=== PATIENT | male | born 1940 | race Caucasian/White ===

== ENCOUNTER → 2018-01-30 | Outpatient (CLI) | payer MEDICARE ==
[~2018-01-30] MED LIST: ATOR20 PO; CEPH500 PO; CLON.3TP TP; CLOP75 PO; FELO5CR PO; Flomax0.4 MG PO; HYDACE5 PO; LEVSOD25 PO; LEVSOD50 PO; LIRA0.6P; LOSA50 PO; LOVA20 PO; META800 PO; METF500 PO; NAPR500 PO; Norvasc10 MG PO; SPIR25 PO; TEMA30 PO; VERA240ER PO; VICTOZA
== END ==
LOC: LAB SHORT 16:17 → LAB 16:17
DX: R11.10 Vomiting, unspecified (principal); R10.9 Unspecified abdominal pain
CPT/HCPCS: 87086

== ENCOUNTER 2018-01-31 19:02 | Emergency (ER) | payer MEDICARE | END 2018-01-31 19:45 | disposition left against medical advice (07) | LOC: ER 19:02 | DX: Z53.21 Procedure and treatment not carried out due to patient leaving prior to being seen by health care provider (principal) ==

== ENCOUNTER 2019-04-14 06:44 | Day surgery (SDC) | payer MEDICARE ==
[~2019-04-14] VITALS: Ht 162.6 cm; Wt 100.6 kg
[~2019-04-14 06:44] MED LIST changes: +Aspirin EC81 MG PO; +COENZYME Q10100 MG PO; +GLIM4 PO; -LIRA0.6P; +LIRA0.6P SC; +MICROZIDE12.5 M2 PO; +Synthroid25 MCG PO; +VITAMIN B122500 MCG PO
== END 2019-04-14 08:53 | disposition home or self-care (01) ==
LOC: ORSCSDS 06:44
PROVIDERS: Surgery
PROC: 0DBN8ZX Excision of Sigmoid Colon, Via Natural or Artificial Opening Endoscopic, Diagnostic (ICD-10-PCS; principal; 2019-04-14 08:00)
PROC: 0DBM8ZX Excision of Descending Colon, Via Natural or Artificial Opening Endoscopic, Diagnostic (ICD-10-PCS; principal; 2019-04-14 08:00)
PROC: 0DBP8ZX Excision of Rectum, Via Natural or Artificial Opening Endoscopic, Diagnostic (ICD-10-PCS; principal; 2019-04-14 08:00)
PROC: 0DBH8ZX Excision of Cecum, Via Natural or Artificial Opening Endoscopic, Diagnostic (ICD-10-PCS; principal; 2019-04-14 08:00)
DX: Z12.11 Encounter for screening for malignant neoplasm of colon (principal); Z86.010 Personal history of colon polyps; Z80.0 Family history of malignant neoplasm of digestive organs; D12.0 Benign neoplasm of cecum; D12.4 Benign neoplasm of descending colon; K63.5 Polyp of colon; K62.1 Rectal polyp; G47.33 Obstructive sleep apnea (adult) (pediatric); E11.22 Type 2 diabetes mellitus with diabetic chronic kidney disease; I12.9 Hypertensive chronic kidney disease with stage 1 through stage 4 chronic kidney disease, or unspecified chronic kidney disease; N18.9 Chronic kidney disease, unspecified; E03.9 Hypothyroidism, unspecified; E66.01 Morbid (severe) obesity due to excess calories; Z68.38 Body mass index [BMI] 38.0-38.9, adult; Z79.01 Long term (current) use of anticoagulants; Z79.899 Other long term (current) drug therapy
CPT/HCPCS: 82947; 88305; J0330; J0461; J2405; J2704; J7120

== ENCOUNTER 2019-06-28 06:21 | Day surgery (SDC) | payer MEDICARE ==
[~2019-06-28] VITALS: Ht 162.6 cm; Wt 103.9 kg
[~2019-06-28 06:21] MED LIST changes: +Restoril15 MG PO
== END 2019-06-28 08:09 | disposition home or self-care (01) ==
LOC: ORSCSDS 06:21
PROVIDERS: Ophthalmology
PROC: 08RK3JZ Replacement of Left Lens with Synthetic Substitute, Percutaneous Approach (ICD-10-PCS; principal; 2019-06-28 07:30)
DX: H25.12 Age-related nuclear cataract, left eye (principal); E11.9 Type 2 diabetes mellitus without complications; I10 Essential (primary) hypertension; N18.9 Chronic kidney disease, unspecified; E03.9 Hypothyroidism, unspecified; E66.01 Morbid (severe) obesity due to excess calories; Z68.39 Body mass index [BMI] 39.0-39.9, adult; Z79.82 Long term (current) use of aspirin; Z79.899 Other long term (current) drug therapy
CPT/HCPCS: 82947; J2250; J3010; V2632

== ENCOUNTER 2021-12-09 00:46 | Inpatient (IN) | payer OTHER, MEDICARE ==
[~2021-12-09] VITALS: Ht 162.6 cm; Wt 106.6 kg
[2021-12-09 02:17] LABS: BASOPHILS ABSOLUTE AUTO 0.02 K/mm3 (0.00-0.23); BASOPHILS PERCENT AUTO 0 % (0-2); EOSINOPHILS ABSOLUTE AUTO 0.49 K/mm3 (0.00-0.68); EOSINOPHILS PERCENT AUTO 7 % (0-6); Hematocrit 36.8 % (37.0-53.0); Hemoglobin 12.5 g/dL (13.5-17.5); IMMATURE GRAN ABSOLUTE AUTO 0.02 K/mm3 (0.00-0.10); IMMATURE GRAN PERCENT AUTO 0 % (0-1); LYMPHOCYTES ABSOLUTE AUTO 1.12 K/mm3 (0.84-5.20); LYMPHOCYTES PERCENT AUTO 16 % (21-46); MONOCYTES ABSOLUTE AUTO 0.61 K/mm3 (0.16-1.47); MONOCYTES PERCENT AUTO 9 % (4-13); Mean Corpuscular HGB 30.2 pg (26.0-34.0); Mean Corpuscular Volume 89 fL (80-100); Mean Platelet Volume 9.3 fL (9.1-12.4); NEUTROPHILS ABSOLUTE AUTO 4.87 K/mm3 (1.96-9.15); NEUTROPHILS PERCENT AUTO 68 % (41-73); Platelet Count 148 K/mm3 (150-400); RDW Coefficient Variation 12.6 % (11.7-14.2); RDW Standard Deviation 40.9 fL (35.1-46.3); Red Blood Cell Count 4.14 M/mm3 (4.30-5.90); White Blood Cell Count 7.13 K/mm3 (4.00-11.30)
[2021-12-09 02:31] LABS: Albumin, Blood 3.1 g/dL (3.4-5.0); Albumin/Globulin Ratio 0.9 (0.8-1.8); Bilirubin, Total 0.3 mg/dL (0.1-1.0); Bun/Creatinine Ratio 13.2 (12.0-20.0); Calcium, Blood 8.2 mg/dL (8.5-10.1); Creatinine, Blood 3.41 mg/dL (0.60-1.20); Globulin, Blood 3.5 g/dL (2.2-4.0); Potassium, Blood 4.5 mmol/L (3.5-5.5); Total Protein, Blood 6.6 g/dL (6.4-8.2)
[2021-12-09] MEDS ORDERED: FELODIPINE ER5 M2 PO (03:39)
[2021-12-09] MEDS ORDERED: SPIRONOLACTONE25 MG PO (03:39)
[2021-12-09] MEDS ORDERED: CLONIDINE1 EA17 TD (03:39)
[2021-12-09] MEDS ORDERED: ROSU10TA PO (03:39)
[2021-12-09] MEDS ORDERED: LOSARTAN (03:40)
[2021-12-09] MEDS ORDERED: OMEGA-3 + VITA200 ML PO (03:41)
[2021-12-09] MEDS ORDERED: VERAPAMIL SR240 M1 PO (03:42)
[2021-12-09] MEDS ORDERED: metoprolol succinate (03:42)
[2021-12-09] MEDS ORDERED: HYDCHL25 PO (03:42)
[2021-12-09] MEDS ORDERED: SULFAMETHOXAZO1 EAC1 PO (03:43)
[2021-12-09] MEDS ORDERED: AMLODIPINE BESY10 MG PO (03:43)
[2021-12-09] MEDS ORDERED: ATOR40TA PO (03:44)
[2021-12-09] MEDS ORDERED: PLAVIX75 MG PO (03:44)
[2021-12-09] MEDS ORDERED: VENLAFAXINE HC225 MG PO (03:45)
[2021-12-09] MEDS ORDERED: RESTORIL15 M1 PO (03:46)
[2021-12-09] MEDS ORDERED: GLIM4 PO (03:47)
[2021-12-09 04:22] LABS: Source, Urine Clean Catch
[2021-12-09 04:28] LABS: Bilirubin, Urine Neg (Neg); Blood, Urine 1+ (Neg); Glucose Qualitative, Urine 2+ (Neg); Ketones, Urine Neg (Neg); Leukocyte Esterase, Urine 1+ (Neg); Nitrite, Urine Neg (Neg); Protein, Urine 3+ (Neg); Urobilinogen, Urine NORM (Normal)
[2021-12-09 05:00] LABS: Appearance, Urine Clear (Clear); Color, Urine Yellow (P-Yellow)
[2021-12-09 05:05] LABS: Amorphous Light (0-Heavy); Bacteria Few /hpf; Calcium Oxalate Crystals Few /hpf; Red Blood Cells, Urine 0-2 /hpf (0-2); Squamous Epithelial Cells Few /hpf (Few); White Blood Cells, Urine 0-2 /hpf (0-5)
--- NOTE | 2021-12-09 16:24 | NUR ---
Patient admitted for hypoglycemia, will observe during the night. Orders to check blood sugar Q4H. Patient Alert & oriented, weak needs assistance for transfers. Uses BSC, incontinent at times. Patient is impulsive, unaware of surroundings. Provided education on safety, patient demonstrated how to use call-light. Bed alarm activated and audible. Vitals stable, CBGs WNL.
[2021-12-09] MEDS ORDERED: LOSA50 PO (16:40)
[2021-12-09] MEDS ORDERED: TOPROL XL50 MG PO (16:41)
[2021-12-09] MEDS ORDERED: LEVSOD25 PO (16:44)
[2021-12-09] MEDS ORDERED: TAMS.4ER PO (16:45)
[2021-12-09] MEDS ORDERED: TEMA15 PO (16:48)
[2021-12-10 05:30] LABS: BASOPHILS ABSOLUTE AUTO 0.01 K/mm3 (0.00-0.23); BASOPHILS PERCENT AUTO 0 % (0-2); EOSINOPHILS ABSOLUTE AUTO 0.63 K/mm3 (0.00-0.68); EOSINOPHILS PERCENT AUTO 11 % (0-6); Hematocrit 41.6 % (37.0-53.0); Hemoglobin 13.9 g/dL (13.5-17.5); IMMATURE GRAN ABSOLUTE AUTO 0.02 K/mm3 (0.00-0.10); IMMATURE GRAN PERCENT AUTO 0 % (0-1); LYMPHOCYTES ABSOLUTE AUTO 1.27 K/mm3 (0.84-5.20); LYMPHOCYTES PERCENT AUTO 22 % (21-46); MONOCYTES ABSOLUTE AUTO 0.68 K/mm3 (0.16-1.47); MONOCYTES PERCENT AUTO 12 % (4-13); Mean Corpuscular HGB 30.3 pg (26.0-34.0); Mean Corpuscular HGB Conc 33.4 g/dL (31.5-36.5); Mean Corpuscular Volume 91 fL (80-100); Mean Platelet Volume 9.8 fL (9.1-12.4); NEUTROPHILS ABSOLUTE AUTO 3.21 K/mm3 (1.96-9.15); NEUTROPHILS PERCENT AUTO 55 % (41-73); Platelet Count 133 K/mm3 (150-400); RDW Coefficient Variation 12.8 % (11.7-14.2); RDW Standard Deviation 42.6 fL (35.1-46.3); Red Blood Cell Count 4.59 M/mm3 (4.30-5.90); White Blood Cell Count 5.82 K/mm3 (4.00-11.30)
[2021-12-10 05:56] LABS: Albumin, Blood 2.9 g/dL (3.4-5.0); Albumin/Globulin Ratio 0.9 (0.8-1.8); Bilirubin, Total 0.3 mg/dL (0.1-1.0); Bun/Creatinine Ratio 12.8 (12.0-20.0); Creatinine, Blood 3.13 mg/dL (0.60-1.20); Globulin, Blood 3.3 g/dL (2.2-4.0); Total Protein, Blood 6.2 g/dL (6.4-8.2)
--- NOTE | 2021-12-10 18:02 | NUR ---
DAYSHIFT SUMMARY Patient febrile during the night, tylenol given at 0700, fever broke at 1000. Patients sister at [facility], reported concerns that patient had a stroke, stated he has a hx of TIAs. Neuro assessment completed, WNL. Patient alert, unable to explain situation/time. Blood cultures ordered, results pending. Blood sugar WNL, DC'd IV D5W & oral hypoglycemic med. PVR ordered, no urinary retention noted. Vitals stable, waiting for BC results.
[2021-12-10 19:48] LABS: SARS-Cov-2 (COVID-19) PCR, MMC NEGATIVE (NEGATIVE)
--- NOTE | 2021-12-11 04:57 | NUR ---
SHIFT SUMMARY NO ACUTE CHANGES THIS SHIFT. AOX3, FORGETFUL @TIMES. DENIES PAIN, N/V OR DYSPNEA. HS CBG @147. VSS. AFEBRILE. PT SLEPT WELL T/O NIGHT. CALL LIGHT & BED ALARM IN PLACE, WILL MONITOR.
[2021-12-11 06:51] LABS: Albumin, Blood 2.6 g/dL (3.4-5.0); Albumin/Globulin Ratio 0.8 (0.8-1.8); Bilirubin, Total 0.4 mg/dL (0.1-1.0); Bun/Creatinine Ratio 17.3 (12.0-20.0); Creatinine, Blood 3.06 mg/dL (0.60-1.20); Globulin, Blood 3.2 g/dL (2.2-4.0); Potassium, Blood 4.2 mmol/L (3.5-5.5); Total Protein, Blood 5.8 g/dL (6.4-8.2)
--- NOTE | 2021-12-11 16:50 | NUR ---
PT SENT HOME WITH DC INSTRUCTIONS GIVEN TO AND PT. WHEELCHAIR ESCORT OUT TO PRIVATE CAR, TO DRIVE PT HOME.
== END 2021-12-11 16:14 | disposition home or self-care (01) | DRG 637 ==
LOC: ER 00:46 → ERHOLD 00:47 → MEDS 13:49
PROVIDERS: Family Medicine; Internal Medicine; Student in an Organized Health Care Education/Training Program; ADMIT Internal Medicine
DX: E11.649 Type 2 diabetes mellitus with hypoglycemia without coma (principal); G92.8 Other toxic encephalopathy; N39.0 Urinary tract infection, site not specified; N18.4 Chronic kidney disease, stage 4 (severe); Z86.73 Personal history of transient ischemic attack (TIA), and cerebral infarction without residual deficits; I12.9 Hypertensive chronic kidney disease with stage 1 through stage 4 chronic kidney disease, or unspecified chronic kidney disease; G47.33 Obstructive sleep apnea (adult) (pediatric); R63.4 Abnormal weight loss; T38.3X5A Adverse effect of insulin and oral hypoglycemic [antidiabetic] drugs, initial encounter; E03.9 Hypothyroidism, unspecified; Z20.822 Contact with and (suspected) exposure to COVID-19; E78.5 Hyperlipidemia, unspecified; Z98.890 Other specified postprocedural states; Z98.49 Cataract extraction status, unspecified eye; Z96.1 Presence of intraocular lens; Z79.899 Other long term (current) drug therapy; Z79.84 Long term (current) use of oral hypoglycemic drugs; R33.9 Retention of urine, unspecified
CPT/HCPCS: 36415; 51798; 71045; 80053; 81001; 82947; 83036; 84145; 84443; 85025; 87040; 87086; 93005; 93010; 96372; 96374; 99285-25; A9270; G0378; J1644; J7042; U0004

== ENCOUNTER 2022-10-30 09:51 | Day surgery (SDC) | payer MEDICARE ==
[~2022-10-30] VITALS: Ht 162.6 cm; Wt 87.0 kg
[~2022-10-30 09:51] MED LIST changes: +AMLODIPINE BESY10 MG PO; +ATOR40TA PO; +CLONIDINE1 EA17 TD; +FELODIPINE ER5 M2 PO; +HYDCHL25 PO; +LOSARTAN; +OMEGA-3 + VITA200 ML PO; +PLAVIX75 MG PO; +RESTORIL15 M1 PO; +ROSU10TA PO; +SPIRONOLACTONE25 MG PO; +SULFAMETHOXAZO1 EAC1 PO; +TAMS.4ER PO; +TEMA15 PO; +TOPROL XL50 MG PO; +VENLAFAXINE HC225 MG PO; +VERAPAMIL SR240 M1 PO; +metoprolol succinate
--- NOTE | 2022-10-30 11:32 | NUR ---
10/30/22 113[address] Beata Cosme [address]PO[address] WITH DR[address] FREIRE. DR. FREIRE FEELS PATIENT IS APPROPRIATE FOR NURSE SEDATION.
[2022-10-30 12:24] VITALS: BP 128/70
== END 2022-10-30 12:27 | disposition home or self-care (01) ==
LOC: ORSCSDS 09:51
PROVIDERS: Surgery
PROC: 0DBH8ZX Excision of Cecum, Via Natural or Artificial Opening Endoscopic, Diagnostic (ICD-10-PCS; principal; 2022-10-30 11:00)
PROC: 0DBL8ZX Excision of Transverse Colon, Via Natural or Artificial Opening Endoscopic, Diagnostic (ICD-10-PCS; principal; 2022-10-30 11:00)
DX: Z12.11 Encounter for screening for malignant neoplasm of colon (principal); Z86.010 Personal history of colon polyps; Z80.0 Family history of malignant neoplasm of digestive organs; D12.3 Benign neoplasm of transverse colon; D12.0 Benign neoplasm of cecum; K57.30 Diverticulosis of large intestine without perforation or abscess without bleeding; I12.9 Hypertensive chronic kidney disease with stage 1 through stage 4 chronic kidney disease, or unspecified chronic kidney disease; E11.22 Type 2 diabetes mellitus with diabetic chronic kidney disease; N18.9 Chronic kidney disease, unspecified; I25.10 Atherosclerotic heart disease of native coronary artery without angina pectoris; G47.33 Obstructive sleep apnea (adult) (pediatric); I25.2 Old myocardial infarction; Z79.02 Long term (current) use of antithrombotics/antiplatelets; Z79.01 Long term (current) use of anticoagulants; Z79.899 Other long term (current) drug therapy
CPT/HCPCS: 82947; 88305; J2704; J7120

== ENCOUNTER 2023-04-29 23:54 | Emergency (ER) | payer MEDICARE ==
[~2023-04-29] VITALS: Ht 162.6 cm; Wt 86.2 kg
[2023-04-29 23:55] VITALS: BP 146/83
[2023-04-30 00:52] LABS: BASOPHILS ABSOLUTE AUTO 0.02 K/mm3 (0.00-0.23); BASOPHILS PERCENT AUTO 0 % (0-2); EOSINOPHILS PERCENT AUTO 0 % (0-6); Hematocrit 36.5 % (37.0-53.0); Hemoglobin 12.1 g/dL (13.5-17.5); IMMATURE GRAN ABSOLUTE AUTO 0.04 K/mm3 (0.00-0.10); IMMATURE GRAN PERCENT AUTO 1 % (0-1); LYMPHOCYTES ABSOLUTE AUTO 0.72 K/mm3 (0.84-5.20); LYMPHOCYTES PERCENT AUTO 9 % (21-46); MONOCYTES ABSOLUTE AUTO 0.13 K/mm3 (0.16-1.47); MONOCYTES PERCENT AUTO 2 % (4-13); Mean Corpuscular HGB 30.4 pg (26.0-34.0); Mean Corpuscular HGB Conc 33.2 g/dL (31.5-36.5); Mean Corpuscular Volume 92 fL (80-100); Mean Platelet Volume 9.4 fL (9.1-12.4); NEUTROPHILS ABSOLUTE AUTO 7.29 K/mm3 (1.96-9.15); NEUTROPHILS PERCENT AUTO 89 % (41-73); Platelet Count 248 K/mm3 (150-400); RDW Coefficient Variation 11.6 % (11.7-14.2); RDW Standard Deviation 39.2 fL (35.1-46.3); Red Blood Cell Count 3.98 M/mm3 (4.30-5.90)
[2023-04-30 01:00] LABS: Bun/Creatinine Ratio 17.7 (12.0-20.0); Calcium, Blood 9.3 mg/dL (8.5-10.1); Creatinine, Blood 3.61 mg/dL (0.60-1.20); Potassium, Blood 4.4 mmol/L (3.5-5.5)
== END 2023-04-30 01:50 | disposition home or self-care (01) ==
LOC: ER 23:54
PROVIDERS: Student in an Organized Health Care Education/Training Program
DX: R11.2 Nausea with vomiting, unspecified (principal); E86.0 Dehydration; I12.9 Hypertensive chronic kidney disease with stage 1 through stage 4 chronic kidney disease, or unspecified chronic kidney disease; E11.22 Type 2 diabetes mellitus with diabetic chronic kidney disease; N18.30 Chronic kidney disease, stage 3 unspecified; E78.5 Hyperlipidemia, unspecified; E03.9 Hypothyroidism, unspecified; G47.33 Obstructive sleep apnea (adult) (pediatric); Z86.73 Personal history of transient ischemic attack (TIA), and cerebral infarction without residual deficits; Z79.02 Long term (current) use of antithrombotics/antiplatelets; Z79.899 Other long term (current) drug therapy
CPT/HCPCS: 80048; 85025; 99284; A9270; J7030

== ENCOUNTER 2024-07-30 11:54 | Emergency (ER) | payer MEDICARE ==
[~2024-07-30] VITALS: Ht 162.6 cm; Wt 85.7 kg
[2024-07-30 12:43] LABS: BASOPHILS ABSOLUTE AUTO 0.02 K/mm3 (0.00-0.23); BASOPHILS PERCENT AUTO 0 % (0-2); EOSINOPHILS ABSOLUTE AUTO 0.28 K/mm3 (0.00-0.68); EOSINOPHILS PERCENT AUTO 5 % (0-6); Hematocrit 31.1 % (37.0-53.0); Hemoglobin 9.7 g/dL (13.5-17.5); IMMATURE GRAN ABSOLUTE AUTO 0.02 K/mm3 (0.00-0.10); IMMATURE GRAN PERCENT AUTO 0 % (0-1); LYMPHOCYTES ABSOLUTE AUTO 1.29 K/mm3 (0.84-5.20); LYMPHOCYTES PERCENT AUTO 22 % (21-46); MONOCYTES ABSOLUTE AUTO 0.42 K/mm3 (0.16-1.47); MONOCYTES PERCENT AUTO 7 % (4-13); Mean Corpuscular HGB 30.6 pg (26.0-34.0); Mean Corpuscular HGB Conc 31.2 g/dL (31.5-36.5); Mean Corpuscular Volume 98 fL (80-100); Mean Platelet Volume 9.7 fL (9.1-12.4); NEUTROPHILS ABSOLUTE AUTO 3.89 K/mm3 (1.96-9.15); NEUTROPHILS PERCENT AUTO 66 % (41-73); Platelet Count 226 K/mm3 (150-400); RDW Standard Deviation 46.3 fL (35.1-46.3); Red Blood Cell Count 3.17 M/mm3 (4.30-5.90); White Blood Cell Count 5.92 K/mm3 (4.00-11.30)
[2024-07-30 13:21] LABS: Albumin, Blood 3.2 g/dL (3.4-5.0); Albumin/Globulin Ratio 0.9 (0.8-1.8); Bilirubin, Total 0.4 mg/dL (0.1-1.0); Calcium, Blood 8.4 mg/dL (8.5-10.1); Creatinine, Blood 4.66 mg/dL (0.60-1.20); Globulin, Blood 3.5 g/dL (2.2-4.0); Total Protein, Blood 6.7 g/dL (6.4-8.2)
[2024-07-30] MEDS ORDERED: Sodium Zirconium Cyclosilicate 10 GM Packet PO ONE (13:25)
[2024-07-30] MEDS ORDERED: Dextrose 50% 50 ML Syringe IV ONE (13:25)
[2024-07-30] MEDS ORDERED: Furosemide 10 MG/ML 4ML Vial IV ONE (13:25)
[2024-07-30] MEDS ORDERED: Insulin Regular 100 Unit/ML 1ML Dose IV ONE (13:25)
[2024-07-30] MEDS ORDERED: Albuterol 2.5 MG/3 ML VIAL INH SCH (13:25)
[2024-07-30] MEDS ORDERED: Calcium Chloride 10% 100 MG/ML 10ML Vial IV SCH (13:30)
[2024-07-30] MEDS ORDERED: Dextrose 50% 50 ML Vial IV ONE (13:30)
[2024-07-30] MEDS ORDERED: Calcium Chloride 10% 1,000 MG in NS 50 ML IV ONE (13:35)
[2024-07-30] MEDS ORDERED: NS 1,000 ML IV SCH (13:55)
[2024-07-30] MEDS ORDERED: Dextrose 50% 50 ML Vial ONE (15:52)
[2024-07-30 16:21] LABS: Creatinine, Blood 4.56 mg/dL (0.60-1.20); Potassium, Blood 4.5 mmol/L (3.5-5.5)
[2024-07-30 16:22] LABS: Calcium, Blood 13.6 mg/dL (8.5-10.1)
[2024-07-30 16:49] LABS: Magnesium, Blood 3.3 mg/dL (1.6-2.4)
[2024-07-30 16:51] LABS: Bun/Creatinine Ratio 19.5 (12.0-20.0); Calcium, Blood 9.3 mg/dL (8.5-10.1); Creatinine, Blood 4.62 mg/dL (0.60-1.20); Potassium, Blood 4.8 mmol/L (3.5-5.5)
[2024-07-30] MEDS ORDERED: AMLO5 PO (17:11)
[2024-07-30 17:15] VITALS: BP 167/59
== END 2024-07-30 17:40 | disposition home or self-care (01) ==
LOC: ER 11:54
PROVIDERS: Physician Assistant; Student in an Organized Health Care Education/Training Program
DX: E87.5 Hyperkalemia (principal); R79.89 Other specified abnormal findings of blood chemistry; I12.9 Hypertensive chronic kidney disease with stage 1 through stage 4 chronic kidney disease, or unspecified chronic kidney disease; E11.22 Type 2 diabetes mellitus with diabetic chronic kidney disease; N18.30 Chronic kidney disease, stage 3 unspecified; E78.5 Hyperlipidemia, unspecified; G47.33 Obstructive sleep apnea (adult) (pediatric); Z79.899 Other long term (current) drug therapy
CPT/HCPCS: 80048; 80053; 82947; 83735; 85025; 93005; 93010; 96365; 96375; 99283-25; A9270; J1815; J1940; J7030; J7799

== ENCOUNTER 2025-03-27 14:37 | Emergency (ER) | payer MEDICARE ==
[~2025-03-27] VITALS: Ht 162.6 cm; Wt 88.5 kg
[~2025-03-27 14:37] MED LIST changes: +AMLO5 PO
[2025-03-27 15:09] LABS: BASOPHILS ABSOLUTE AUTO 0.04 K/mm3 (0.00-0.23); BASOPHILS PERCENT AUTO 1 % (0-2); EOSINOPHILS ABSOLUTE AUTO 0.26 K/mm3 (0.00-0.68); EOSINOPHILS PERCENT AUTO 3 % (0-6); Hematocrit 35.5 % (37.0-53.0); Hemoglobin 11.6 g/dL (13.5-17.5); IMMATURE GRAN ABSOLUTE AUTO 0.03 K/mm3 (0.00-0.10); IMMATURE GRAN PERCENT AUTO 0 % (0-1); LYMPHOCYTES ABSOLUTE AUTO 3.87 K/mm3 (0.84-5.20); LYMPHOCYTES PERCENT AUTO 44 % (21-46); MONOCYTES ABSOLUTE AUTO 0.66 K/mm3 (0.16-1.47); MONOCYTES PERCENT AUTO 8 % (4-13); Mean Corpuscular HGB Conc 32.7 g/dL (31.5-36.5); Mean Corpuscular Volume 92 fL (80-100); NEUTROPHILS ABSOLUTE AUTO 3.92 K/mm3 (1.96-9.15); NEUTROPHILS PERCENT AUTO 45 % (41-73); NRBC ABSOLUTE 0.00 K/mm3 (0.00-0.02); NRBC Auto 0.0 /100 WBC (0.0-0.2); Platelet Count 177 K/mm3 (150-400); RDW Coefficient Variation 13.5 % (11.7-14.2); RDW Standard Deviation 45.9 fL (35.1-46.3)
[2025-03-27] MEDS ORDERED: NS 1,000 ML IV SCH (15:10)
[2025-03-27 15:29] LABS: Alanine Aminotransfer (ALT/SGP 38.0 U/L (12-78); Albumin, Blood 3.4 g/dL (3.4-5.0); Albumin/Globulin Ratio 0.9 (0.8-1.8); Anion Gap 13.0 mmol/L (3-11); Aspartate Aminotrans (AST/SGOT 19.0 U/L (12-37); Bilirubin, Total 0.3 mg/dL (0.1-1.0); Blood Urea Nitrogen 34.0 mg/dL (8-24); CO2, Blood 26.0 mmol/L (21-32); Calcium, Blood 9.6 mg/dL (8.5-10.1); Chloride, Blood 103.0 mmol/L (98-108); Creatinine, Blood 3.15 mg/dL (0.60-1.20); Globulin, Blood 3.8 g/dL (2.2-4.0); Glucose, Blood 180.0 mg/dL (70-99); Potassium, Blood 3.6 mmol/L (3.5-5.5); Sodium, Blood 138.0 mmol/L (136-145); Total Protein, Blood 7.2 g/dL (6.4-8.2)
[2025-03-27 16:41] VITALS: BP 140/59
== END 2025-03-27 16:41 | disposition home or self-care (01) ==
LOC: ER 14:37
PROVIDERS: Emergency Medicine
DX: R55 Syncope and collapse (principal); I12.9 Hypertensive chronic kidney disease with stage 1 through stage 4 chronic kidney disease, or unspecified chronic kidney disease; E11.22 Type 2 diabetes mellitus with diabetic chronic kidney disease; N18.30 Chronic kidney disease, stage 3 unspecified; E78.5 Hyperlipidemia, unspecified; E03.9 Hypothyroidism, unspecified; G47.33 Obstructive sleep apnea (adult) (pediatric); Z86.73 Personal history of transient ischemic attack (TIA), and cerebral infarction without residual deficits; Z79.02 Long term (current) use of antithrombotics/antiplatelets; Z79.890 Hormone replacement therapy; Z79.899 Other long term (current) drug therapy
CPT/HCPCS: 80053; 82947; 84484; 85025; 99284-25; J7030